=== PATIENT | female | born 1960 | race Caucasian/White ===

== ENCOUNTER 2017-01-28 11:22 | Emergency (ER) | payer MEDICARE ==
[2017-01-28 11:56] LABS: BASO % 0.4 % (0-6); EOS % 1.2 % (0-6); GRAN % 70.2 % (47-80); HEMATOCRIT 42.3 % (35.0-47.0); LYMPH % 22.2 % (16-45); MEAN CORPUSCULAR HEMOGLOBIN 32.1 pg (27-33); MEAN CORPUSCULAR HGB CONC 33.1 g/dl (32-36); PLATELET COUNT 374 K/uL (130-400); RED BLOOD COUNT 4.36 M/uL (3.80-5.40); RED CELL DISTRIBUTION WIDTH 12.2 % (11.5-14.5)
[2017-01-28 12:23] LABS: BLOOD UREA NITROGEN 19 mg/dL (6-20); CREATININE 0.8 mg/dL (0.5-0.9); EST GLOMERULAR FILTRATION RATE > 60 mL/min; GLUCOSE,RANDOM 115 mg/dL (74-109); THYROID STIMULATING HORMONE 2.44 uIU/mL (0.270-4.20)
[2017-01-28 12:26] LABS: TROPONIN I < 0.30 ng/mL (0.00-0.300)
[2017-01-28 12:44] LABS: ERYTHROCYTE SEDIMENTATION RATE 6 mm/hr (0-30)
--- NOTE | 2017-01-28 14:06 | Emergency Department Record ---
History of Present Illness - General Chief Complaint: Palpitations Stated Complaint: HEART RACING Time Seen by Provider: 01/28/17 11:35 Source: Patient Mode of Arrival: Ambulatory Limitations: No limitations - History of Present Illness Initial Comments: pt has been feeling palpitations off and on. pt has been under a lot of stress. pt has had recent lab work by fam doc. today palpitations were worse and her hr was frequently 120.pt is also c/o swelling and tenderness of r middle finger pipj Complaint: Palpitations, Rapid heart beat Onset/Timin -: Days(s) Associated Symptoms: Anxiety - Related Data Allergies Allergy/AdvReac Type Severity Reaction Status Date / Time cefuroxime axetil Allergy Intermediate HIVES Verified 04/28/15 10:22 [From Ceftin] Travel Screening - Travel/Exposure Within Last 30 Days Have you traveled within the last 30 days?: No - Travel/Exposure Within Last Year Have you traveled outside the [place] in the last year?: No - Additonal Travel Details Have you been exposed to anyone with a communicable illness?: No - Travel Symptoms Symptom Screening: None Review of Systems Reviewed: No additional complaints except as noted below Constitutional: Reports: As per HPI. Denies: Chills, Fever, Malaise, Night sweats, Weakness, Weight change Eyes: Reports: As per HPI. Denies: Eye discharge, Eye pain, Photophobia, Vision change ENT: Reports: As per HPI. Denies: Congestion, Dental pain, Ear pain, Epistaxis , Hearing loss, Throat pain Respiratory: Reports: As per HPI. Denies: Cough, Dyspnea, Hemoptysis, Stridor, Wheezes Cardiovascular: Reports: As per HPI. Denies: Arrhythmia, Chest pain, Dyspnea on exertion, Edema, Murmurs, Orthopnea, Palpitations, Paroxysmal nocturnal dyspnea, Rheumatic Fever, Syncope Endocrine: Reports: As per HPI. Denies: Fatigue, Heat or cold intolerance, Polydipsia, Polyuria Gastrointestinal: Reports: As per HPI. Denies: Abdominal pain, Constipation, Diarrhea, Hematemesis, Hematochezia, Melena, Nausea, Vomiting Genitourinary: Reports: As per HPI. Denies: Abnormal menses, Discharge, Dyspareunia, Dysuria, Frequency, Hematuria, Incontinence, Retention, Urgency Musculoskeletal: Reports: As per HPI. Denies: Arthralgia, Back pain, Gout, Joint swelling, Myalgia, Neck pain Skin: Reports: As per HPI. Denies: Bruising, Change in color, Change in hair/ nails, Lesions, Pruritus, Rash Neurological: Reports: As per HPI. Denies: Abnormal gait, Confusion, Headache, Numbness, Paresthesias, Seizure, Tingling, Tremors, Vertigo, Weakness Psychiatric: Reports: As per HPI. Denies: Anxiety, Auditory hallucinations, Depression, Homicidal thoughts, Suicidal thoughts, Visual hallucinations Hematological/Lymphatic: Reports: As per HPI. Denies: Anemia, Blood Clots, Easy bleeding, Easy bruising, Swollen glands Past Medical History - SOCIAL HISTORY Smoking Status: Never smoker Alcohol Use: None Drug Use: None - RESPIRATORY Hx Respiratory Disorders: No - CARDIOVASCULAR Hx Cardio Disorders: No - NEURO Hx Neuro Disorders: No - GI Hx GI Disorders: No - Hx Genitourinary Disorders: No - ENDOCRINE Hx Endocrine Disorders: Yes Hx Thyroid Disease: Yes (Hypo) - MUSCULOSKELETAL Hx Musculoskeletal Disorders: No - PSYCH Hx Psych Problems: Yes Hx Anxiety: Yes Hx Depression: Yes - HEMATOLOGY/ONCOLOGY Hx Hematology/Oncology Disorders: No Family Medical History Any Significant Family History?: No Hx Cancer: Father Hx Heart Disease: Grandparents Hx Liver Disease: Father Hx Stroke: Mother, Grandparents Physical Exam - General General Appearance: Alert, Oriented x3, Cooperative, Mild distress - Head Head exam: Normal inspection - Eye Eye exam: Normal appearance, PERRL, EOMI Pupils: Normal accommodation - ENT ENT exam: Normal exam, Mucous membranes moist, Normal external ear exam, Normal orophraynx Ear exam: Normal external inspection. negative: External canal tenderness Nasal Exam: Normal inspection. negative: Discharge, Sinus tenderness Mouth exam: Normal external inspection, Tongue normal Teeth exam: Normal inspection. negative: Dental caries Throat exam: Normal inspection. negative: Tonsillar erythema, Tonsillar exudate - Neck Neck exam: Normal inspection, Full ROM. negative: Tenderness - Respiratory Respiratory exam: Normal lung sounds bilaterally. negative: Respiratory distress - Cardiovascular Cardiovascular Exam: Regular rate, Normal rhythm, Normal heart sounds - GI/Abdominal GI/Abdominal exam: Soft, Normal bowel sounds. negative: Tenderness - Rectal Rectal exam: Deferred - exam: Deferred - Extremities Extremities exam: Normal inspection, Full ROM, Normal capillary refill, Tenderness Image of Hand: 1 - tender w swelling - Back Back exam: Reports: Normal inspection, Full ROM. Denies: Muscle spasm, Rash noted, Tenderness - Neurological Neurological exam: Alert, CN II-XII intact, Normal gait, Oriented X3 - Psychiatric Psychiatric exam: Anxious, Normal affect, Normal mood - Skin Skin exam: Dry, Intact, Normal color, Warm Course Vital Signs 01/28/17 01/28/17 01/28/17 11:24 12:00 12:30 Temperature 98.5 F Pulse Rate 84 Pulse Rate [ 76 81 Pulse Ox Probe] Respiratory 16 16 16 Rate Blood Pressure 143/83 Blood Pressure 124/88 110/78 [Left Arm] Pulse Ox 100 99 99 Medical Decision Making - Lab Data Result diagrams: 01/28/17 11:37 01/28/17 11:37 Lab Results 01/28/17 01/28/17 01/28/17 Range/Units 11:37 11:37 11:37 WBC 5.0 (4.2-12.2) K/uL RBC 4.36 (3.80-5.40) M/uL Hgb 14.0 (11.6-16.0) gm/dl Hct 42.3 (35.0-47.0) % MCV 97.0 (81-97) fl MCH 32.1 (27-33) pg MCHC 33.1 (32-36) g/dl RDW 12.2 (11.5-14.5) % Plt Count 374 (130-400) K/uL MPV 9.0 (7.4-10.4) fl Gran % 70.2 (47-80) % Lymphocytes % 22.2 (16-45) % Monocytes % 6.0 (0-9) % Eosinophils % 1.2 (0-6) % Basophils % 0.4 (0-6) % ESR 6 (0-30) mm/hr D-Dimer 0.31 (0-0.59) mg/L FEU Sodium 138 (136-145) mmol/L Potassium 3.8 (3.4-4.5) mmol/L Chloride 100 (98-107) mmol/L Carbon Dioxide 26.0 (22-29) mmol/L Anion Gap 12.0 (7-16) BUN 19 (6-20) mg/dL Creatinine 0.8 (0.5-0.9) mg/dL Estimated GFR > 60 mL/min Random Glucose 115 H (74-109) mg/dL Calcium 9.5 (8.6-10.0) mg/dL Troponin I < 0.30 (0.00-0.300) ng/mL TSH 2.44 (0.270-4.20) uIU/mL Disposition Disposition: Discharge Clinical Impression: Anxiety, Palpitations Jammed interphalangeal joint of finger of right hand Qualifiers: Encounter type: initial encounter Qualified Code(s): S69.91XA - Unspecified injury of right wrist, hand and finger(s), initial encounter Disposition: Home, Self-Care Condition: (1) Good Instructions: Heart Palpitations (ED), Jammed Finger (ED), Anxiety (ED) Additional Instructions: follow up with family doctor. return sooner if worse. no caffeine. no cold medications. Forms: Patient Portal Access Quality - Quality Measures Quality Measures: N/A - Blood Pressure Screening Does Patient Have Any of the Following: No Blood Pressure Classification: Pre-Hypertensive BP Reading Systolic Measurement: 143 Diastolic Measurement: 83 Screening for High Blood Pressure: < Pre-Hypertensive BP, F/U Documented > [ G8950] Pre-Hypertensive Follow-up Interventions: Follow-up with rescreen every year.
--- NOTE | 2017-01-29 12:36 | RADIOLOGY REPORT ---
EXAM: RIGHT MIDDLE FINGER HISTORY: PAIN AND SWELLING AT THE RIGHT THIRD PIP JOINT AFTER DOING YARD WORK ONE DAY AGO. TECHNIQUE: Three views of the right middle finger were obtained. Comparison: Previous right wrist series dated 01/28/16. Encounter: Initial. FINDINGS: The bones are intact. There is no visible acute fracture or dislocation. There is mild soft tissue swelling at the level of the PIP joint. There is no soft tissue air or foreign body. IMPRESSION: 1. MILD SOFT TISSUE SWELLING AT THE PIP JOINT. 2. NO FRACTURE OR FOREIGN BODY. JOB NUMBER: [id number] [facility]
== END 2017-01-28 14:30 | disposition home or self-care (01) ==
LOC: ER 11:22
DX: S69.91XA Unspecified injury of right wrist, hand and finger(s), initial encounter (principal); R42 Dizziness and giddiness; R00.2 Palpitations; F41.9 Anxiety disorder, unspecified; W23.0XXA Caught, crushed, jammed, or pinched between moving objects, initial encounter
CPT/HCPCS: 73140; 80048; 84443; 84484; 85025; 85379; 85651; 93005; 93010; 99284

== ENCOUNTER 2017-06-03 12:38 | Emergency (ER) | payer MEDICARE ==
[2017-06-03] MEDS ORDERED: ONDANSETRON HCL IV 4 MG/2 ML VIAL IVP ONE ×2 (13:44→15:37)
[2017-06-03 13:53] LABS: URINE APPEARANCE CLEAR; URINE BILIRUBIN NEGATIVE (NEGATIVE); URINE BLOOD NEGATIVE (NEGATIVE); URINE COLOR YELLOW; URINE GLUCOSE (UA) NEGATIVE (NEGATIVE); URINE KETONE NEGATIVE (NEGATIVE); URINE LEUKOCYTE ESTERASE NEGATIVE (NEGATIVE); URINE NITRITE NEGATIVE (NEGATIVE); URINE PROTEIN NEGATIVE (NEGATIVE); URINE UROBILINOGEN 0.2 E.U./dL (0.20 - 1.00)
[2017-06-03 13:57] LABS: BASO % 0.5 % (0-6); GRAN % 65.6 % (47-80); HEMATOCRIT 41.1 % (35.0-47.0); HEMOGLOBIN 13.5 gm/dl (11.6-16.0); LYMPH % 25.7 % (16-45); MEAN CELL VOLUME 98.1 fl (81-97); MEAN CORPUSCULAR HEMOGLOBIN 32.2 pg (27-33); MEAN CORPUSCULAR HGB CONC 32.8 g/dl (32-36); MONO % 6.2 % (0-9); PLATELET COUNT 289 K/uL (130-400); RED BLOOD COUNT 4.19 M/uL (3.80-5.40); RED CELL DISTRIBUTION WIDTH 12.4 % (11.5-14.5); WHITE BLOOD COUNT W/O DIFF 4.1 K/uL (4.2-12.2)
[2017-06-03 14:09] LABS: BILIRUBIN,TOTAL < 0.20 mg/dL (0.2-1.0); BLOOD UREA NITROGEN 24 mg/dL (6-20); CREATININE 0.7 mg/dL (0.5-0.9); EST GLOMERULAR FILTRATION RATE > 60 mL/min
[2017-06-03 14:10] LABS: TOTAL PROTEIN 6.9 g/dL (6.6-8.7)
[2017-06-03 14:12] LABS: GLUCOSE,RANDOM 107 mg/dL (74-109)
[2017-06-03 14:14] LABS: ALT/SGPT 24 U/L (<33); AST/SGOT 19 U/L (10.0-35.0)
[2017-06-03 14:15] LABS: ALB/GLOB RATIO 1.9 (1.1-1.8); ALBUMIN 4.5 g/dL (4.0-5.0); ALKALINE PHOSPHATASE 88 U/L (35-104); LIPASE 28 U/L (13-60)
--- NOTE | 2017-06-03 15:54 | Emergency Department Record ---
History of Present Illness - General Chief complaint: Nausea, Vomiting, Diarrhea Stated complaint: NAUSEA Time Seen by Provider: 06/03/17 13:18 Source: Patient Mode of Arrival: Ambulatory Limitations: No limitations - History of Present Illness Initial comments: pt has been having nausea for the last week and some occasional discomfort in the epigastrum. she has lost 5 lbs because she doesnt feel like eating. she had 1 day of diarrhea Onset/Timin -: Week(s) Severity: Moderate Severity scale (1-10): 5 Quality: Aching Consistency: Constant Improves with: None - Related Data Previous Rx's Medication Instructions Recorded Ondansetron [Zofran Odt] 4 mg PO Q8H #10 tab.rapdis 06/03/17 Allergies Allergy/AdvReac Type Severity Reaction Status Date / Time cefuroxime axetil Allergy Intermediate HIVES Verified 06/03/17 13:16 [From Ceftin] Travel Screening - Travel/Exposure Within Last 30 Days Have you traveled within the last 30 days?: No - Travel/Exposure Within Last Year Have you traveled outside the [place] in the last year?: No - Additonal Travel Details Have you been exposed to anyone with a communicable illness?: No - Travel Symptoms Symptom Screening: None Review of Systems Reviewed: No additional complaints except as noted below Constitutional: Reports: As per HPI. Denies: Chills, Fever, Malaise, Night sweats, Weakness, Weight change Eyes: Reports: As per HPI. Denies: Eye discharge, Eye pain, Photophobia, Vision change ENT: Reports: As per HPI. Denies: Congestion, Dental pain, Ear pain, Epistaxis , Hearing loss, Throat pain Respiratory: Reports: As per HPI. Denies: Cough, Dyspnea, Hemoptysis, Stridor, Wheezes Cardiovascular: Reports: As per HPI. Denies: Arrhythmia, Chest pain, Dyspnea on exertion, Edema, Murmurs, Orthopnea, Palpitations, Paroxysmal nocturnal dyspnea, Rheumatic Fever, Syncope Endocrine: Reports: As per HPI. Denies: Fatigue, Heat or cold intolerance, Polydipsia, Polyuria Gastrointestinal: Reports: As per HPI, Abdominal pain, Diarrhea, Nausea. Denies : Constipation, Hematemesis, Hematochezia, Melena, Vomiting Genitourinary: Reports: As per HPI. Denies: Abnormal menses, Discharge, Dyspareunia, Dysuria, Frequency, Hematuria, Incontinence, Retention, Urgency Musculoskeletal: Reports: As per HPI. Denies: Arthralgia, Back pain, Gout, Joint swelling, Myalgia, Neck pain Skin: Reports: As per HPI. Denies: Bruising, Change in color, Change in hair/ nails, Lesions, Pruritus, Rash Neurological: Reports: As per HPI. Denies: Abnormal gait, Confusion, Headache, Numbness, Paresthesias, Seizure, Tingling, Tremors, Vertigo, Weakness Psychiatric: Reports: As per HPI. Denies: Anxiety, Auditory hallucinations, Depression, Homicidal thoughts, Suicidal thoughts, Visual hallucinations Hematological/Lymphatic: Reports: As per HPI. Denies: Anemia, Blood Clots, Easy bleeding, Easy bruising, Swollen glands Past Medical History - SOCIAL HISTORY Smoking Status: Never smoker - RESPIRATORY Hx Respiratory Disorders: No - CARDIOVASCULAR Hx Cardio Disorders: No - NEURO Hx Neuro Disorders: No - GI Hx GI Disorders: No - Hx Genitourinary Disorders: No - ENDOCRINE Hx Endocrine Disorders: Yes Hx Thyroid Disease: Yes (Hypo) - MUSCULOSKELETAL Hx Musculoskeletal Disorders: No - PSYCH Hx Psych Problems: Yes Hx Anxiety: Yes Hx Depression: Yes - HEMATOLOGY/ONCOLOGY Hx Hematology/Oncology Disorders: No Family Medical History Any Significant Family History?: Yes Hx Cancer: Father Hx Heart Disease: Grandparents Hx Liver Disease: Father Hx Stroke: Mother, Grandparents Course Vital Signs 06/03/17 13:11 Temperature 98.4 F Pulse Rate 90 Respiratory 16 Rate Blood Pressure 129/84 Pulse Ox 100 Medical Decision Making - Lab Data Result diagrams: 06/03/17 13:42 06/03/17 13:42 Lab Results 06/03/17 06/03/17 06/03/17 Range/Units 13:42 13:42 13:45 WBC 4.1 L (4.2-12.2) K/uL RBC 4.19 (3.80-5.40) M/uL Hgb 13.5 (11.6-16.0) gm/dl Hct 41.1 (35.0-47.0) % MCV 98.1 H (81-97) fl MCH 32.2 (27-33) pg MCHC 32.8 (32-36) g/dl RDW 12.4 (11.5-14.5) % Plt Count 289 (130-400) K/uL MPV 9.0 (7.4-10.4) fl Gran % 65.6 (47-80) % Lymphocytes % 25.7 (16-45) % Monocytes % 6.2 (0-9) % Eosinophils % 2.0 (0-6) % Basophils % 0.5 (0-6) % Sodium 143 (136-145) mmol/L Potassium 4.2 (3.4-4.5) mmol/L Chloride 100 (98-107) mmol/L Carbon Dioxide 28.0 (22-29) mmol/L Anion Gap 15.0 (7-16) BUN 24 H (6-20) mg/dL Creatinine 0.7 (0.5-0.9) mg/dL Estimated GFR > 60 mL/min Random Glucose 107 (74-109) mg/dL Calcium 9.6 (8.6-10.0) mg/dL Total Bilirubin < 0.20 L (0.2-1.0) mg/dL AST 19 (10.0-35.0) U/L ALT 24 (<33) U/L Alkaline Phosphatase 88 (35-104) U/L Total Protein 6.9 (6.6-8.7) g/dL Albumin 4.5 (4.0-5.0) g/dL Globulin 2.4 (1.4-4.8) gm/dL Albumin/Globulin Ratio 1.9 H (1.1-1.8) Lipase 28 (13-60) U/L Urine Color Yellow Urine Appearance Clear Urine pH 6.5 (5.0-8.0) Ur Specific [place] <= 1.005 (1.002-1.030) Urine Protein Negative (NEGATIVE) Urine Glucose (UA) Negative (NEGATIVE) Urine Ketones Negative (NEGATIVE) Urine Blood Negative (NEGATIVE) Urine Nitrite Negative (NEGATIVE) Urine Bilirubin Negative (NEGATIVE) Urine Urobilinogen 0.2 (0.20 - 1.00) E.U./dL Ur Leukocyte Esterase Negative (NEGATIVE) Disposition Disposition: Discharge Clinical Impression: Nausea Abdominal pain Qualifiers: Abdominal location: epigastric Qualified Code(s): R10.13 - Epigastric pain Disposition: Home, Self-Care Condition: (1) Good Instructions: Abdominal Pain (ED), Acute Nausea and Vomiting (ED) Additional Instructions: follow up with family doctor and with GI doctor. return sooner if worse. Prescriptions: Ondansetron [Zofran Odt] 4 mg PO Q8H #10 tab.rapdis Quality - Quality Measures Quality Measures: N/A - Blood Pressure Screening Does Patient Have Any of the Following: No Blood Pressure Classification: Pre-Hypertensive BP Reading Systolic Measurement: 129 Diastolic Measurement: 84 Screening for High Blood Pressure: < Pre-Hypertensive BP, F/U Documented > [ G8950] Pre-Hypertensive Follow-up Interventions: Follow-up with rescreen every year.
== END 2017-06-03 16:13 | disposition home or self-care (01) ==
LOC: ER 12:38
DX: R10.13 Epigastric pain (principal); R11.2 Nausea with vomiting, unspecified; R19.7 Diarrhea, unspecified
CPT/HCPCS: 99284 ×2; 96376; 96374; 83690; 85025; 80053; 81003; J2405

== ENCOUNTER 2017-07-31 17:07 | Emergency (ER) | payer MEDICARE ==
[2017-07-31] MEDS ORDERED: ALPRAZOLAM 0.25 MG TABLET PO ONE (17:38)
[2017-07-31] MEDS ORDERED: 0.9 % SODIUM CHLORIDE 1,000 ML BAG IV ONE (17:38)
[2017-07-31] MEDS ORDERED: LORAZEPAM 2 MG/ML VIAL IV ONE (17:39)
--- NOTE | 2017-07-31 17:44 | Emergency Department Record ---
History of Present Illness - General Chief Complaint: Dizziness Stated Complaint: DIZZNESS/ELEVATED HEART RATE Time Seen by Provider: 07/31/17 17:37 Source: Patient Mode of Arrival: Ambulatory Limitations: No limitations - History of Present Illness Initial Comments: 56 yo female presents with anxiety, heart racing and heart pounding. She states she found out her Aunt was found two days ago in her home. Since then she has not been able to rest, she is anxious, and she is having nightmares. She is finding it difficult to concentrate and control her thoughts. She was trying to take a nap today and felt like her heart was racing. No chest pain. NO shortness of breath. She denies history of heart or lung disease. Non smoker. No other recent changes in her health. She states she does not known why her aunt . Her nightmares are that she (the patient) has undiagnosed cancer. PCP is Dr Elizondo in [place]. Complaint: Lightheadedness Onset/Timin -: Hour(s) Timing: Gradual onset Description: Other History of Same: Yes History of Trauma: No (Loss of family member) Associated Symptoms: Denies other symptoms - [place] Coma Scale Eye Response: (4) Open spontaneously Motor Response: (6) Obeys commands Verbal Response: (5) Oriented [place] Total: 15 - Related Data Previous Rx's Medication Instructions Recorded Ondansetron [Zofran Odt] 4 mg PO Q8H #10 tab.rapdis 06/03/17 Allergies Allergy/AdvReac Type Severity Reaction Status Date / Time cefuroxime axetil Allergy Intermediate HIVES Verified 07/31/17 17:19 [From Ceftin] Travel Screening - Travel/Exposure Within Last 30 Days Have you traveled within the last 30 days?: No - Travel/Exposure Within Last Year Have you traveled outside the [place] in the last year?: No - Additonal Travel Details Have you been exposed to anyone with a communicable illness?: No - Travel Symptoms Symptom Screening: None Review of Systems Constitutional: Denies: Chills, Fever, Malaise, Weakness Eyes: Denies: Eye discharge, Eye pain, Photophobia, Vision change ENT: Denies: Congestion, Throat pain Respiratory: Denies: Cough, Dyspnea, Hemoptysis, Stridor, Wheezes Cardiovascular: Reports: Palpitations. Denies: Chest pain, Dyspnea on exertion , Edema, Syncope Endocrine: Denies: Fatigue Gastrointestinal: Denies: Abdominal pain, Diarrhea, Nausea, Vomiting Genitourinary: Denies: Dysuria, Urgency Musculoskeletal: Denies: Arthralgia, Back pain, Myalgia Skin: Denies: Bruising, Change in color, Rash Neurological: Denies: Confusion, Headache, Numbness, Tingling, Tremors, Vertigo , Weakness Psychiatric: Reports: Anxiety Hematological/Lymphatic: Denies: Easy bleeding, Easy bruising, Swollen glands Past Medical History - SOCIAL HISTORY Smoking Status: Never smoker Alcohol Use: None Drug Use: None - RESPIRATORY Hx Respiratory Disorders: No - CARDIOVASCULAR Hx Cardio Disorders: No - NEURO Hx Neuro Disorders: No - GI Hx GI Disorders: No - Hx Genitourinary Disorders: No - ENDOCRINE Hx Endocrine Disorders: Yes Hx Thyroid Disease: Yes (Hypo) - MUSCULOSKELETAL Hx Musculoskeletal Disorders: No - PSYCH Hx Psych Problems: Yes Hx Anxiety: Yes Hx Depression: Yes - HEMATOLOGY/ONCOLOGY Hx Hematology/Oncology Disorders: No Family Medical History Any Significant Family History?: No Hx Cancer: Father Hx Heart Disease: Grandparents Hx Liver Disease: Father Hx Stroke: Mother, Grandparents Physical Exam - General General Appearance: Alert, Oriented x3, Cooperative, No acute distress Limitations: No limitations - Head Head exam: Normal inspection - Eye Eye exam: Normal appearance, PERRL. negative: Conjunctival injection, Scleral icterus - ENT ENT exam: Normal exam Ear exam: Normal external inspection Nasal Exam: Normal inspection Mouth exam: Normal external inspection - Neck Neck exam: Normal inspection, Full ROM. negative: Tenderness - Respiratory Respiratory exam: Normal lung sounds bilaterally. negative: Respiratory distress - Cardiovascular Cardiovascular Exam: Regular rate, Normal rhythm, Normal heart sounds. negative : Diastolic murmur, Irregular rhythm, Systolic murmur, Tachycardia (HR 96 at time of examination) Peripheral Pulses: 2+: Radial (R), Radial (L) - GI/Abdominal GI/Abdominal exam: Soft. negative: Tenderness - Rectal Rectal exam: Deferred - exam: Deferred - Extremities Extremities exam: Normal inspection. negative: Calf tenderness, Pedal edema, Tenderness - Back Back exam: Reports: Normal inspection, Full ROM. Denies: Muscle spasm, Rash noted, Tenderness - Neurological Neurological exam: Alert, Normal gait, Oriented X3, Reflexes normal - Psychiatric Psychiatric exam: Anxious, Other (Tearful at times, fears she has cancer) - Skin Skin exam: Dry, Intact, Normal color, Warm Course Vital Signs 07/31/17 07/31/17 17:11 17:23 Temperature 98.3 F Pulse Rate 118 H Respiratory 20 Rate Blood Pressure 167/103 Blood Pressure 129/87 [Left Arm] Pulse Ox 100 - Reevaluation(s) Reevaluation #1: EKG 17:17 sinus tachycardia at 103, intervals normal, axis normal, ST normal. NO changes from prior except the rate. Prior was 01/28/17 07/31/17 17:42 07/31/17 18:03 No acute changes on the CBC 07/31/17 18:37 No acute changes on the CMP or troponin with symptoms going on well over 4 hours , atypical, and consistent with her anxiety and grief. The heart rate is much improved at 88bpm The patient is calm 07/31/17 18:44 The patient feels like she can control her grief and anxiety on her own. She has seen therapist in the past and she knows the techniques to help with her anxiety She has a network of friends, family and muslim as well. 07/31/17 18:45 TSH is 1.2 Medical Decision Making - Lab Data Result diagrams: 07/31/17 17:52 07/31/17 17:52 Disposition Disposition: Discharge Clinical Impression: Palpitation, Grief reaction Disposition: Home, Self-Care Condition: (1) Good Instructions: Heart Palpitations (ED) Additional Instructions: Return if you have any concerns or uncontrolled anxiety Call your doctor for close follow up of today's ER visit Forms: Patient Portal Access Time of Disposition: 18:39 Quality - Quality Measures Quality Measures: N/A - Blood Pressure Screening Does Patient Have Any of the Following: No Blood Pressure Classification: Pre-Hypertensive BP Reading Systolic Measurement: 127 Diastolic Measurement: 81 Screening for High Blood Pressure: < Pre-Hypertensive BP, F/U Documented > [ G8950] Pre-Hypertensive Follow-up Interventions: Referral to alternative/primary care provider.
[2017-07-31 17:59] LABS: BASO % 0.6 % (0-6); EOS % 1.3 % (0-6); GRAN % 65.7 % (47-80); HEMATOCRIT 38.2 % (35.0-47.0); HEMOGLOBIN 12.7 gm/dl (11.6-16.0); LYMPH % 24.8 % (16-45); MEAN CELL VOLUME 95.5 fl (81-97); MEAN CORPUSCULAR HEMOGLOBIN 31.8 pg (27-33); MEAN CORPUSCULAR HGB CONC 33.2 g/dl (32-36); MEAN PLATELET VOLUME 8.7 fl (7.4-10.4); MONO % 7.6 % (0-9); PLATELET COUNT 327 K/uL (130-400); RED CELL DISTRIBUTION WIDTH 12.1 % (11.5-14.5); WHITE BLOOD COUNT W/O DIFF 4.6 K/uL (4.2-12.2)
[2017-07-31 18:12] LABS: BILIRUBIN,TOTAL < 0.20 mg/dL (0.2-1.0); BLOOD UREA NITROGEN 19 mg/dL (6-20); CREATININE 0.7 mg/dL (0.5-0.9); EST GLOMERULAR FILTRATION RATE > 60 mL/min; TOTAL PROTEIN 6.5 g/dL (6.6-8.7)
[2017-07-31 18:14] LABS: GLUCOSE,RANDOM 106 mg/dL (74-109)
[2017-07-31 18:17] LABS: ALBUMIN 4.3 g/dL (4.0-5.0); ALKALINE PHOSPHATASE 67 U/L (35-104); ALT/SGPT 18 U/L (<33); AST/SGOT 18 U/L (10.0-35.0)
[2017-07-31 18:29] LABS: THYROID STIMULATING HORMONE 1.21 uIU/mL (0.270-4.20)
== END 2017-07-31 19:00 | disposition home or self-care (01) ==
LOC: ER 17:07
DX: R00.2 Palpitations (principal); R42 Dizziness and giddiness; F43.22 Adjustment disorder with anxiety; E03.9 Hypothyroidism, unspecified
CPT/HCPCS: 99284 ×2; 96374; 96361; 85025; 80053; 84443; 84484; 93005; 93010; J2060; J7030

== ENCOUNTER 2017-09-14 02:05 | Observation (INO) | payer MEDICARE ==
[2017-09-14] MEDS ORDERED: ONDANSETRON HCL IV 4 MG/2 ML VIAL IVP ONE (02:21)
[2017-09-14] MEDS ORDERED: MORPHINE SULFATE 4MG/ML PREFILLED SYRINGE IVP ONE (02:21)
--- NOTE | 2017-09-14 02:26 | Emergency Department Record ---
History of Present Illness - General Chief Complaint: Abdominal Pain Stated Complaint: ABD PAIN Time Seen by Provider: 09/14/17 02:20 Source: Patient Mode of Arrival: Ambulatory Limitations: No limitations - History of Present Illness Initial Comments: 56 yo female presents to ED for evaluation of diffuse abdominal pain and bloating for the past 48 hours associated with loose stools, denies nausea/ vomiting. Patient denies fevers, chills, or recent illness. Patient denies health problems at her baseline or previous abdominal pain symptoms. MD Complaint: Abdominal pain Onset/Timin -: Hour(s) Location: Diffuse Radiation: None Migration to: No migration Severity: Moderate Severity scale (1-10): 8 Quality: Sharp Consistency: Getting worse Improves With: Nothing Worsens With: Nothing Associated Symptoms: Diarrhea - Related Data LMP (females 10-50): other Patient : No Allergies Allergy/AdvReac Type Severity Reaction Status Date / Time cefuroxime axetil Allergy Intermediate HIVES Verified 07/31/17 17:19 [From Ceftin] Travel Screening - Travel/Exposure Within Last 30 Days Have you traveled within the last 30 days?: No - Travel/Exposure Within Last Year Have you traveled outside the [place] in the last year?: No - Additonal Travel Details Have you been exposed to anyone with a communicable illness?: No - Travel Symptoms Symptom Screening: None Review of Systems Constitutional: Denies: Chills, Fever, Malaise, Night sweats Eyes: Denies: Eye discharge, Eye pain ENT: Denies: Congestion, Ear pain Respiratory: Denies: Cough, Dyspnea Cardiovascular: Denies: Chest pain, Dyspnea on exertion Endocrine: Denies: Fatigue, Heat or cold intolerance Gastrointestinal: Reports: Abdominal pain, Diarrhea. Denies: Nausea, Vomiting Genitourinary: Denies: Incontinence, Retention Musculoskeletal: Denies: Arthralgia, Back pain Skin: Denies: Bruising, Change in color Neurological: Denies: Abnormal gait, Confusion, Seizure Psychiatric: Denies: Anxiety Hematological/Lymphatic: Denies: Anemia, Blood Clots Past Medical History - SOCIAL HISTORY Smoking Status: Never smoker Alcohol Use: None Drug Use: None - RESPIRATORY Hx Respiratory Disorders: No - CARDIOVASCULAR Hx Cardio Disorders: No - NEURO Hx Neuro Disorders: No - GI Hx GI Disorders: No - Hx Genitourinary Disorders: No - ENDOCRINE Hx Endocrine Disorders: Yes Hx Thyroid Disease: Yes (Hypo) - MUSCULOSKELETAL Hx Musculoskeletal Disorders: No - PSYCH Hx Psych Problems: Yes Hx Anxiety: Yes Hx Depression: Yes - HEMATOLOGY/ONCOLOGY Hx Hematology/Oncology Disorders: No Family Medical History Any Significant Family History?: No Hx Cancer: Father Hx Heart Disease: Grandparents Hx Liver Disease: Father Hx Stroke: Mother, Grandparents Physical Exam - General General Appearance: Alert, Oriented x3, Cooperative, Moderate distress, Anxious Limitations: No limitations - Head Head exam: Atraumatic, Normocephalic, Normal inspection Head exam detail: negative: Abrasion, Contusion, Graff's sign, General tenderness, Hematoma, Laceration - Eye Eye exam: Normal appearance. negative: Conjunctival injection, Periorbital swelling, Periorbital tenderness, Scleral icterus - ENT Ear exam: negative: Auricular hematoma, Auricular trauma Nasal Exam: negative: Active bleeding, Discharge, Dried blood, Foreign body Mouth exam: negative: Drooling, Laceration, Muffled voice, Tongue elevation - Neck Neck exam: Normal inspection. negative: Meningismus, Tenderness - Respiratory Respiratory exam: Normal lung sounds bilaterally. negative: Rales, Respiratory distress, Rhonchi, Stridor - Cardiovascular Cardiovascular Exam: Regular rate, Normal rhythm, Normal heart sounds - GI/Abdominal GI/Abdominal exam: Soft, Tenderness (Mild, diffuse TTP on examination, no rebound or guarding present.). negative: Rebound, Rigid - Rectal Rectal exam: Deferred - exam: Deferred - Extremities Extremities exam: Normal inspection. negative: Calf tenderness, Pedal edema, Tenderness - Back Back exam: Denies: CVA tenderness (R), CVA tenderness (L) - Neurological Neurological exam: Alert, Normal gait, Oriented X3 - Psychiatric Psychiatric exam: Normal affect, Normal mood - Skin Skin exam: Normal color. negative: Abrasion Type of lesion: negative: abrasion Course Vital Signs 09/14/17 02:08 Temperature 98.5 F Pulse Rate 98 H Respiratory 20 Rate Blood Pressure 138/95 Pulse Ox 100 - Reevaluation(s) Reevaluation #1: 09/14/17 03:27 Labs reviewed and are grossly unremarkable for an acute process. Patient is currently in CT imaging. Reevaluation #2: 09/14/17 03:45 Patient was re-examined, reports improvement in her pain symptoms. Reevaluation #3: 09/14/17 04:25 CT Abdomen and Pelvis: Severe, diffuse small bowel, colonic ileus, and sever gastroparesis. CBD 0.8 cm with associated mild distension of the intra-hepatic ducts and biliary tree. Patient was updated on all results, reports that she is resting more comfortably at this time. Will admit for observation and further evaluation. Medical Decision Making - Lab Data Result diagrams: 09/14/17 02:15 09/14/17 02:15 Disposition Disposition: Admit Clinical Impression: Ileus Abdominal pain Qualifiers: Abdominal location: generalized Qualified Code(s): R10.84 - Generalized abdominal pain Disposition: Still a Patient at [facility] Decision to Admit: Admit from ER Decision to Admit Date: 09/14/17 Decision to Admit Time: 04:32 Condition: (2) Stable Forms: Patient Portal Access Time of Disposition: 04:32 Quality - Quality Measures Quality Measures: N/A - Blood Pressure Screening Does Patient Have Any of the Following: No Blood Pressure Classification: Hypertensive Reading Systolic Measurement: 138 Diastolic Measurement: 95 Screening for High Blood Pressure: < First Hypertensive BP, F/U Documented > [ [id number]] First Hypertensive Follow-up Interventions: Referral to alternative/primary care provider.
[2017-09-14 02:30] LABS: BASO % 0.2 % (0-6); GRAN % 77.9 % (47-80); HEMATOCRIT 43.3 % (35.0-47.0); HEMOGLOBIN 15.1 gm/dl (11.6-16.0); LYMPH % 14.9 % (16-45); MEAN CORPUSCULAR HEMOGLOBIN 34.2 pg (27-33); MEAN CORPUSCULAR HGB CONC 34.9 g/dl (32-36); MEAN PLATELET VOLUME 8.7 fl (7.4-10.4); PLATELET COUNT 325 K/uL (130-400); RED BLOOD COUNT 4.42 M/uL (3.80-5.40); RED CELL DISTRIBUTION WIDTH 12.7 % (11.5-14.5); WHITE BLOOD COUNT W/O DIFF 8.6 K/uL (4.2-12.2)
[2017-09-14] MEDS ORDERED: 0.9 % SODIUM CHLORIDE 1000ML 1,000 ML IV SCH (02:30)
[2017-09-14 02:48] LABS: BLOOD UREA NITROGEN 9 mg/dL (6-20); CREATININE 0.8 mg/dL (0.5-0.9); EST GLOMERULAR FILTRATION RATE > 60 mL/min
[2017-09-14 02:49] LABS: TOTAL PROTEIN 7.3 g/dL (6.6-8.7)
[2017-09-14 02:51] LABS: GLUCOSE,RANDOM 129 mg/dL (74-109)
[2017-09-14 02:53] LABS: ALB/GLOB RATIO 1.9 (1.1-1.8); ALBUMIN 4.8 g/dL (4.0-5.0); ALT/SGPT 19 U/L (<33); AST/SGOT 16 U/L (10.0-35.0)
[2017-09-14] MEDS ORDERED: ACETAMINOPHEN 1,000 MG/100 ML BTL IVPB ONE (02:53)
[2017-09-14 02:54] LABS: ALKALINE PHOSPHATASE 67 U/L (35-104); LIPASE 13 U/L (13-60)
[2017-09-14 03:48] LABS: URINE APPEARANCE CLEAR; URINE BILIRUBIN NEGATIVE (NEGATIVE); URINE BLOOD TRACE-I (NEGATIVE); URINE COLOR YELLOW; URINE GLUCOSE (UA) NEGATIVE (NEGATIVE); URINE KETONE NEGATIVE (NEGATIVE); URINE LEUKOCYTE ESTERASE NEGATIVE (NEGATIVE); URINE NITRITE NEGATIVE (NEGATIVE); URINE PROTEIN NEGATIVE (NEGATIVE); URINE UROBILINOGEN 0.2 E.U./dL (0.20 - 1.00)
[2017-09-14 03:55] LABS: URINE EPITHELIAL CELLS 0 - 2 (FEW); URINE RBC 0 - 2 (NONE SEEN); URINE WBC 0 - 2 (0-2/hpf)
[2017-09-14] MEDS ORDERED: ACETAMINOPHEN 1,000 MG/100 ML BTL IVPB SCH (04:46)
[2017-09-14] MEDS ORDERED: ONDANSETRON HCL IV 4 MG/2 ML VIAL IVP PRN (04:46)
[2017-09-14] MEDS ORDERED: 0.9 % SODIUM CHLORIDE 1000ML 1,000 ML IV PRN (04:46)
[2017-09-14] MEDS: ACETAMINOPHEN 1,000 MG/100 ML BTL IVPB SCH ×2 (09:07→17:03)
[2017-09-14] MEDS: HYOSCYAMINE SULFATE ODT 0.125 MG TAB.SUBL SL PRN ×2 (09:30→15:01)
[2017-09-14] MEDS ORDERED: CLONAZEPAM 1MG TABLET PO PRN (09:44)
[2017-09-14] MEDS ORDERED: [UNRECOGNIZED DRUG - OTHER] PO SCH (10:00)
[2017-09-14] MEDS ORDERED: VENLAFAXINE ER 75 MG CAPSULE PO SCH (10:00)
[2017-09-14] MEDS ORDERED: CLONAZEPAM 1MG TABLET PO SCH (10:00)
[2017-09-14] MEDS ORDERED: SIMETHICONE 80 MG TAB.CHEW PO PRN (10:19)
--- NOTE | 2017-09-14 10:37 | CT SCAN REPORT ---
EXAM: EMERGENCY CT OF THE ABDOMEN AND PELVIS WITH CONTRAST HISTORY: ABDOMINAL PAIN BEGAN THREE DAYS AGO INCREASING OVER THE LAST EIGHT HOURS, PAIN THROUGHOUT THE ABDOMEN, BUT WORSE IN THE UPPER ABDOMEN. TECHNIQUE: Axial CT scan of the abdomen and pelvis was obtained following the intravenous administration of 100 ml of Omnipaque 300 as the IV contrast. No oral contrast utilized at the referring physician's request. A preliminary report was provided by [facility]. Comparison: No prior CT. FINDINGS: No calcified gallstones are seen within the gallbladder. No definite hepatic, splenic, adrenal, pancreatic, or renal mass identified. Intrahepatic biliary tree at about the upper limits of normal in caliber and there is mild prominence of the common duct measuring up to about 8.5 mm in diameter. Borderline prominence of the pancreatic duct as well. No obvious mass in the head of the pancreas or common duct calculus seen. Correlation with serum bilirubin is suggested and depending on the clinical setting, follow- up MRCP may be useful. 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 Evaluation of the bowel is limited without oral contrast, however, there appears to be dilatation of about just about all of the bowel including the stomach, much of the small bowel, and much of the colon including the rectum. This presumably represents a pronounced ileus. The lung bases are clear. No free intraperitoneal air or free intraperitoneal fluid identified. There is bilateral spondylolysis of L5 and degenerative disk disease at the lumbosacral interspace with mild spondylolisthesis of L5 on S1. Mild spurring in the lower thoracic spine. IMPRESSION: 1. DILATATION OF MUCH OF THE BOWEL SUGGESTING A PROMINENT ILEUS. 2. MILD DILATATION OF THE BILIARY TREE DESCRIBED ABOVE. CORRELATION WITH SERUM BILIRUBIN IS SUGGESTED FOR INITIAL FURTHER EVALUATION. 3. BILATERAL SPONDYLOLYSIS OF L5 AND DEGENERATIVE DISK DISEASE AT THE LUMBOSACRAL INTERSPACE WITH SOME SPONDYLOLISTHESIS OF L5 ON S1. JOB NUMBER: [id number] [facility]
--- NOTE | 2017-09-14 10:37 | History & Physical ---
History of Present Illness - Date of Service Date of Service for History & Physical: 09/14/17 - History of Present Illness Admitting Diagnosis: Abdominal pain. Ileus History of Present Illness: 56 yo female presents for abd pain/bloating and diarrhea x 4 days. PMG Anxiety and depression, hypothyroid. Pt reports that she at out with family sunday night and then began experiencing abd pain, bloating and diarrhea, denies N/V. Other at at the same location but no others are sick. Denies any new food items or potential undercook meat. Diarrhea once daily that has become uncontrolled but denies blood. No hx of ABX use or sick contacts. pt brought herself to ER. ER CT abd/pelvis shows colonic ileus and sever gastroparesis. CBD dilated at 0.8cm (suggest liver studies- RUQ US ordered) temp98.5F, HR 98, RR 20, BP 138/95, 100% RA pain 9/10 WBC 8.6, Hgb 15.1, Hct 43.3, plt 325 Na 141, K 4.4, Cl 100, CO2 26, BUN 9, creatinine 0.8, GFR >60, glucose 129, bili 0.40, AST/ALT 16/19, Alk Phos 67, lipase 13 Given 1L NS bolus, Ofirmev 1g IVPB, zofran 4mg, and morphine 4mg IVP. 09/14/17 Pt in no distress, reports pain 3/10 with NPO status, IVF @ 125, Ofirmev 1G q6h , levsin ODT 0.25mg q4h PRN. Pt reports she did not like how the morphine made her feel and does not want any narcotics if possible. RUQ US ordered to f/u dilated CBD, LFTs normal. pt has not brought her Street pork thyroid and is NF. If pt remains, will have fam/friend bring home medication in. TSH and Mag ordered from previous labs. Simethicone 80mg TID for gas/bloating ordered PRN. Stool cultures ordered and pending r/t 4 days diarrhea. PCP Delphine Suárez Travel Screening - Travel/Exposure Within Last 30 Days Have you traveled within the last 30 days?: No - Travel/Exposure Within Last Year Have you traveled outside the [place] in the last year?: No - Additonal Travel Details Have you been exposed to anyone with a communicable illness?: No - Travel Symptoms Symptom Screening: Stomach Pain Review of Systems Constitutional: Denies: Chills, Fever, Malaise, Night sweats Eyes: Denies: Eye discharge, Eye pain ENT: Denies: Congestion, Ear pain Respiratory: Denies: Cough, Dyspnea Cardiovascular: Denies: Chest pain, Dyspnea on exertion Endocrine: Denies: Fatigue, Heat or cold intolerance Gastrointestinal: Reports: Abdominal pain, Diarrhea. Denies: Nausea, Vomiting Genitourinary: Denies: Incontinence, Retention Musculoskeletal: Denies: Arthralgia, Back pain Skin: Denies: Bruising, Change in color Neurological: Denies: Abnormal gait, Confusion, Seizure Psychiatric: Denies: Anxiety Hematological/Lymphatic: Denies: Anemia, Blood Clots Past Medical History - SOCIAL HISTORY Smoking Status: Never smoker Alcohol Use: None Drug Use: None - RESPIRATORY Hx Respiratory Disorders: No - CARDIOVASCULAR Hx Cardio Disorders: No - NEURO Hx Neuro Disorders: No - GI Hx GI Disorders: No - Hx Genitourinary Disorders: No - ENDOCRINE Hx Endocrine Disorders: Yes Hx Thyroid Disease: Yes (Hypothyroid) - MUSCULOSKELETAL Hx Musculoskeletal Disorders: No - PSYCH Hx Psych Problems: Yes Hx Anxiety: Yes Hx Depression: Yes - HEMATOLOGY/ONCOLOGY Hx Hematology/Oncology Disorders: No Family Medical History Any Significant Family History?: No Hx Cancer: Father Hx Heart Disease: Grandparents Hx Liver Disease: Father Hx Stroke: Mother, Grandparents H&P Meds/Allergies - Allergies Allergies: Allergies Allergy/AdvReac Type Severity Reaction Status Date / Time cefuroxime axetil Allergy Intermediate HIVES Verified 07/31/17 17:19 [From Ceftin] - Active Medications Active Medications: Current Medications Clonazepam (Klonopin) 2 mg PO BID PRN PRN Reason: ANXIETY Fluoxetine HCl (Prozac) 20 mg PO DAILY [facility] Fluoxetine HCl (Prozac) 10 mg PO QPM [facility] Hyoscyamine (Levsin Odt) 0.25 mg SL Q4H PRN PRN Reason: Abdominal Pain Last Admin: 09/14/17 09:30 Dose: 0.25 mg Sodium Chloride () 1,000 mls @ 125 mls/hr IV .Q8H PRN PRN Reason: LARGE VOLUME IV Last Admin: 09/14/17 05:18 Dose: 125 mls/hr Acetaminophen (Ofirmev) 1,000 mg in 100 mls @ 400 mls/hr IVPB Q6H [facility] Last Infusion: 09/14/17 10:12 Dose: Infused Non-Formulary Medication (Estrogen Combination) 1 tab PO DAILY [facility] Non-Formulary Medication (Thyroid,Pork [Street [facility]]) [facility] Ondansetron HCl (Zofran) 4 mg IVP Q4H PRN PRN Reason: NAUSEA Venlafaxine HCl (Effexor Xr) 300 mg PO DAILY [facility] Physical Exam - Vital Signs Vital Signs: Vital Signs - Last 24 Hrs Temp Pulse Pulse Resp BP BP Pulse Ox 09/14/17 08:00 98.1 F 76 18 114/67 100 09/14/17 04:45 90 16 123/69 99 09/14/17 04:43 87 20 107/66 100 09/14/17 03:46 82 20 118/68 100 09/14/17 02:49 94 H 20 124/82 99 09/14/17 02:08 98.5 F 98 H 20 138/95 100 - General General Appearance: Alert, Oriented x3, Cooperative, No acute distress Limitations: No limitations - Head Head exam: Atraumatic, Normocephalic, Normal inspection Head exam detail: negative: Abrasion, Contusion, Graff's sign, General tenderness, Hematoma, Laceration - Eye Eye exam: Normal appearance. negative: Conjunctival injection, Periorbital swelling, Periorbital tenderness, Scleral icterus - ENT ENT exam: Normal external ear exam Ear exam: Normal external inspection. negative: Auricular hematoma, Auricular trauma Nasal Exam: negative: Active bleeding, Discharge, Dried blood, Foreign body Mouth exam: negative: Drooling, Laceration, Muffled voice, Tongue elevation - Neck Neck exam: Normal inspection. negative: Meningismus, Tenderness - Respiratory Respiratory exam: Normal lung sounds bilaterally. negative: Rales, Respiratory distress, Rhonchi, Stridor - Cardiovascular Cardiovascular Exam: Regular rate, Normal rhythm, Normal heart sounds Peripheral Pulses: 2+: Radial (R), Radial (L), Dorsalis Pedis (R), Dorsalis Pedis (L) - GI/Abdominal GI/Abdominal exam: Soft, Hyperactive bowel sounds, Tenderness (Mild, diffuse TTP on examination, no rebound or guarding present.). negative: Rebound, Rigid - Rectal Rectal exam: Deferred - exam: Deferred - Extremities Extremities exam: Normal inspection. negative: Calf tenderness, Pedal edema, Tenderness - Back Back exam: Denies: CVA tenderness (R), CVA tenderness (L) - Neurological Neurological exam: Alert, Normal gait, Oriented X3 - Psychiatric Psychiatric exam: Normal affect, Normal mood - Skin Skin exam: Normal color. negative: Abrasion Type of lesion: negative: abrasion Results - Labs Result Diagrams: 09/14/17 02:15 09/14/17 02:15 Labs Last 24 Hours: Laboratory Results - last 24 hr 09/14/17 09/14/17 09/14/17 02:15 02:15 03:40 WBC 8.6 RBC 4.42 Hgb 15.1 Hct 43.3 MCV 98.0 H MCH 34.2 H MCHC 34.9 RDW 12.7 Plt Count 325 MPV 8.7 Gran % 77.9 Lymphocytes % 14.9 L Monocytes % 5.0 Eosinophils % 2.0 Basophils % 0.2 Sodium 141 Potassium 4.4 Chloride 100 Carbon Dioxide 26.0 Anion Gap 15.0 BUN 9 Creatinine 0.8 Estimated GFR > 60 Random Glucose 129 H Calcium 9.4 Total Bilirubin 0.40 AST 16 ALT 19 Alkaline Phosphatase 67 Total Protein 7.3 Albumin 4.8 Globulin 2.5 Albumin/Globulin Ratio 1.9 H Lipase 13 Urine Color Yellow Urine Appearance Clear Urine pH 6.0 Ur Specific [place] <= 1.005 Urine Protein Negative Urine Glucose (UA) Negative Urine Ketones Negative Urine Blood Trace-i Urine Nitrite Negative Urine Bilirubin Negative Urine Urobilinogen 0.2 Ur Leukocyte Esterase Negative Urine RBC 0 - 2 Urine WBC 0 - 2 Ur Epithelial Cells 0 - 2 - Imaging and Cardiology CT scan - abdomen Status: Report reviewed VTE H&P Assessment - Risk for VTE Risk for VTE: No Risk Level: Low Risk Assessment Date: 09/14/17 Risk Assessment Time: 10:39 VTE Orders Placed or Will Be Placed: No VTE Reason for No Prophylaxis: Not Indicated Plan - Detailed Diagnosis and Plan (1) Abdominal pain Current Visit: Yes Status: Acute Qualifiers: Abdominal location: generalized Qualified Code(s): R10.84 - Generalized abdominal pain Base Code: R10.9 - UNSPECIFIED ABDOMINAL PAIN Comment: 09/14/17 -diffuse abd pain, TTP, hyperactive BS x4, no organomegaly, controlled with Ofirmev 1gm q6h, levsin 0.25mg q4h PRN -IVF NS @ 125 -NPO except for meds -US ordered RUQ for CBD dialation, LFTs normal - CT suggests possible MRI MRCP after liver study, US correlates to dilation and gallbladder wall thickening but no stones noted. LFTs normal- f/u outpt -advancing to [facility] after lunch (tx caffeine withdrawal [place] with IV benadryl and hot tea) (2) Ileus Current Visit: Yes Status: Acute Base Code: K56.7 - ILEUS, UNSPECIFIED Comment: 09/14/17 - colonic ileus -no N/V, diarrhea x 4 days -no hx of same, denies HX of SBO -NPO for GI rest and re-evaluation -pain mgt (3) Full code status Current Visit: Yes Status: Acute Base Code: Z78.9 - OTHER SPECIFIED HEALTH STATUS Comment: 09/14/17 full code
[2017-09-14 10:52] LABS: THYROID STIMULATING HORMONE 1.51 uIU/mL (0.270-4.20)
[2017-09-14] MEDS ORDERED: DIPHENHYDRAMINE HCL 50 MG/ML VIAL IVP ONE (13:25)
--- NOTE | 2017-09-14 15:32 | Discharge Summary ---
Providers Discharge Summary Date: 09/14/17 Date of admission: 09/14/17 04:42 Expected Date of Discharge: 09/14/17 Attending physician: INGRIS GALVAN Primary care physician: Delphine Suárez Consults: GI Physical Exam - Vital Signs Vital Signs: Vital Signs - Last 24 Hrs Temp Pulse Pulse Resp BP BP Pulse Ox 09/14/17 12:00 97.8 F 80 16 120/81 97 09/14/17 09:00 94 H 20 09/14/17 08:00 98.1 F 76 18 114/67 100 09/14/17 04:45 90 16 123/69 99 09/14/17 04:43 87 20 107/66 100 09/14/17 03:46 82 20 118/68 100 09/14/17 02:49 94 H 20 124/82 99 09/14/17 02:08 98.5 F 98 H 20 138/95 100 - General General Appearance: Alert, Oriented x3, Cooperative, No acute distress Limitations: No limitations - Head Head exam: Atraumatic, Normocephalic, Normal inspection Head exam detail: negative: Abrasion, Contusion, Graff's sign, General tenderness, Hematoma, Laceration - Eye Eye exam: Normal appearance. negative: Conjunctival injection, Periorbital swelling, Periorbital tenderness, Scleral icterus - ENT ENT exam: Normal external ear exam Ear exam: Normal external inspection. negative: Auricular hematoma, Auricular trauma Nasal Exam: negative: Active bleeding, Discharge, Dried blood, Foreign body Mouth exam: negative: Drooling, Laceration, Muffled voice, Tongue elevation - Neck Neck exam: Normal inspection. negative: Meningismus, Tenderness - Respiratory Respiratory exam: Normal lung sounds bilaterally. negative: Rales, Respiratory distress, Rhonchi, Stridor - Cardiovascular Cardiovascular Exam: Regular rate, Normal rhythm, Normal heart sounds Peripheral Pulses: 2+: Radial (R), Radial (L), Dorsalis Pedis (R), Dorsalis Pedis (L) - GI/Abdominal GI/Abdominal exam: Soft, Hyperactive bowel sounds, Tenderness (Mild, diffuse TTP on examination, no rebound or guarding present.). negative: Rebound, Rigid - Rectal Rectal exam: Deferred - exam: Deferred - Extremities Extremities exam: Normal inspection. negative: Calf tenderness, Pedal edema, Tenderness - Back Back exam: Denies: CVA tenderness (R), CVA tenderness (L) - Neurological Neurological exam: Alert, Normal gait, Oriented X3 - Psychiatric Psychiatric exam: Normal affect, Normal mood - Skin Skin exam: Normal color. negative: Abrasion Type of lesion: negative: abrasion Hospitalization - Hospitalization Admission Diagnosis: Abdominal pain. Ileus - Problem List/Discharge Diagnosis (1) Abdominal pain Current Visit: Yes Status: Acute Discharge Diagnosis: Abdominal location: generalized Qualified Code(s): R10.84 - Generalized abdominal pain Base Code: R10.9 - UNSPECIFIED ABDOMINAL PAIN Comment: 09/14/17 -diffuse abd pain, TTP, hyperactive BS x4, no organomegaly, controlled with Ofirmev 1gm q6h, levsin 0.25mg q4h PRN -IVF NS @ 125 -NPO except for meds -US ordered RUQ for CBD dialation, LFTs normal - CT suggests possible MRI MRCP after liver study, US correlates to dilation and gallbladder wall thickening but no stones noted. LFTs normal- f/u outpt -advancing to CLD after lunch (tx caffeine withdrawal FENTON with IV benadryl and hot tea) UPDATE -pt tolerating CLD -CLD through the weekend -FENTON resolved (2) Ileus Current Visit: Yes Status: Acute Base Code: K56.7 - ILEUS, UNSPECIFIED Comment: 09/14/17 - colonic ileus -no N/V, diarrhea x 4 days -no hx of same, denies HX of SBO -NPO for GI rest and re-evaluation -pain mgt UPDATE -CLD until sunday -GI consult outpt -f/u PCP (3) Full code status Current Visit: Yes Status: Acute Base Code: Z78.9 - OTHER SPECIFIED HEALTH STATUS Comment: 09/14/17 full code - Hospitalization Course Disposition: Home, Self-Care Hospital Course: 56 yo female presents for abd pain/bloating and diarrhea x 4 days. PMG Anxiety and depression, hypothyroid. Pt reports that she at out with family sunday night and then began experiencing abd pain, bloating and diarrhea, denies N/V. Other at at the same location but no others are sick. Denies any new food items or potential undercook meat. Diarrhea once daily that has become uncontrolled but denies blood. No hx of ABX use or sick contacts. pt brought herself to ER. ER CT abd/pelvis shows colonic ileus and sever gastroparesis. CBD dilated at 0.8cm (suggest liver studies- RUQ US ordered) temp98.5F, HR 98, RR 20, BP 138/95, 100% RA pain 9/10 WBC 8.6, Hgb 15.1, Hct 43.3, plt 325 Na 141, K 4.4, Cl 100, CO2 26, BUN 9, creatinine 0.8, GFR >60, glucose 129, bili 0.40, AST/ALT 16/19, Alk Phos 67, lipase 13 Given 1L NS bolus, Ofirmev 1g IVPB, zofran 4mg, and morphine 4mg IVP. 09/14/17 Pt in no distress, reports pain 3/10 with NPO status, IVF @ 125, Ofirmev 1G q6h , levsin ODT 0.25mg q4h PRN. Pt reports she did not like how the morphine made her feel and does not want any narcotics if possible. RUQ US ordered to f/u dilated CBD, LFTs normal. pt has not brought her [place] pork thyroid and is NF. If pt remains, will have fam/friend bring home medication in. TSH and Mag ordered from previous labs. Simethicone 80mg TID for gas/bloating ordered PRN. Stool cultures ordered and pending r/t 4 days diarrhea. PCP Delphine Suárez Procedures: Imaging and X-Rays 09/14/17 02:21 ABDOMEN/PELVIS W CONTRAST [CT] Stat 09/14/17 10:17 ABDOMEN, LIMITED [US] Stat Abnormal Labs: Abnormal Lab Results 09/14/17 09/14/17 Range/Units 02:15 02:15 MCV 98.0 H (81-97) fl MCH 34.2 H (27-33) pg Lymphocytes % 14.9 L (16-45) % Random Glucose 129 H (74-109) mg/dL Albumin/Globulin Ratio 1.9 H (1.1-1.8) Condition at Discharge: (2) Stable Discharge Diagnosis: Ileus Discharge Medications - Discharge Medications Prescriptions: Hyoscyamine Sulfate [Levsin Odt] 0.25 mg SL Q6H PRN 5 Days #24 tab.subl MDD 1.5mg per day PRN Reason: Abdominal Pain Simethicone [Mylicon] 80 mg PO TID PRN #1 box PRN Reason: Gas/bloating Home Medications: Ambulatory Orders Clonazepam [Klonopin] 2 mg PO DAILY 04/28/15 [Last Taken 07/31/17] Estrogen Combination 1 tab PO DAILY 04/28/15 [Last Taken 07/31/17] Progesterone,Micronized [Progesterone] 1 tab PO QHS 04/28/15 [Last Taken ] Thyroid,Pork [[place] Thyroid] 30 mg PO DAILY 04/28/15 [Last Taken 07/31/17] Venlafaxine HCl [Effexor Xr] 300 mg PO DAILY 04/28/15 [Last Taken 07/31/17] Clonazepam [Klonopin] 2 mg PO BID PRN tablet 09/14/17 [Last Taken Unknown] Fluoxetine HCl [Prozac] 10 mg PO QPM capsule 09/14/17 [Last Taken Unknown] Fluoxetine HCl [Prozac] 20 mg PO DAILY capsule 09/14/17 [Last Taken Unknown] Hyoscyamine Sulfate [Levsin Odt] 0.25 mg SL Q6H PRN 5 Days #24 tab.subl MDD 1.5mg per day 09/14/17 [Last Taken Unknown] Simethicone [Mylicon] 80 mg PO TID PRN #1 box 09/14/17 [Last Taken Unknown] Discharge Plan - Discharge Instructions Activity at Discharge: Increase Activity as Tolerated Diet at Discharge: Other (Clear liquid diet for 2 more days, then advance) Quality Measures - Quality Measures Quality Measures: Documentation of Current Medications in Medical Record, Screening for High Blood Pressure and F/U Documented - Current Medications Quality Measure: Measure #130: Documentation of Current Medications Documentation of Current Medications: <Current Medications Documented/Reviewed> [G3548] - Blood Pressure Screening Quality Measure: Screening for High Blood Pressure and Follow-Up Documented Does Patient Have Any of the Following: No Blood Pressure Classification: Hypertensive Reading Systolic Measurement: 138 Diastolic Measurement: 95 Screening for High Blood Pressure: < Pre-Hypertensive BP, F/U Documented > [ G8950] Pre-Hypertensive Follow-up Interventions: Referral to alternative/primary care provider. - Elder Abuse Suspicion Index EASI Reference Information: Poornima MUKHERJEE, Malathi C, Larry D, Carloz Tim.Development and validation of a tool to assist physicians identification of elder abuse: The Elder Abuse Suspicion Index (EASI ). Journal of Elder Abuse and Neglect, 2008; 20 (3): 276-300.
[2017-09-14] MEDS ORDERED: FLUOXETINE HCL 10 MG CAPSULE PO SCH (17:00)
[2017-09-14] MEDS ORDERED: PROGESTERONE MICRONIZED PO SCH (22:00)
[2017-09-15] MEDS ORDERED: THYROID PORK 30 MG PO SCH (07:00)
[2017-09-15] MEDS ORDERED: FLUOXETINE HCL 20 MG CAPSULE PO SCH (10:00)
--- NOTE | 2017-09-15 22:15 | ULTRASOUND REPORT ---
EXAM: ULTRASOUND ABDOMEN, COMPLETE HISTORY: ABDOMINAL PAIN FOR THREE DAYS. DILATED COMMON DUCT ON ABDOMEN CT EARLIER TODAY. ULTRASOUND REQUESTED FOR FURTHER EVALUATION OF THE GALLBLADDER AND BILIARY TREE. TECHNIQUE: Limited emergency gallbladder ultrasound. COMPARISON: No prior abdomen ultrasound Comparison is made with the abdomen CT from earlier this morning on 09/14/17. FINDINGS: Gallbladder wall diffusely appears mildly thickened. This is nonspecific and can be seen in numerous conditions including acute or chronic cholecystitis, hepatitis, hypoproteinemia, and ascites. No ascites is evident. No actual gallstones were seen within the gallbladder. The common duct is mildly dilated measuring 8 mm in diameter corresponding to that seen on the CT today. No obvious intrahepatic biliary dilatation seen. Correlation with serum bilirubin suggested and follow-up MRCP may be useful for further evaluation. IMPRESSION: 1. MILD DIFFUSE PROMINENCE OF THE GALLBLADDER WALL. HOWEVER, NO GALLSTONES IDENTIFIED. 2. MILD DILATATION OF THE COMMON DUCT. JOB NUMBER: [id number] MTDD
== END 2017-09-14 18:17 | disposition home or self-care (01) ==
LOC: ER 02:05 → MEDSURG 04:42
PROVIDERS: ADMIT Internal Medicine; ATTEND Internal Medicine
DX: K56.7 Ileus, unspecified (principal); R19.7 Diarrhea, unspecified; R14.0 Abdominal distension (gaseous); E03.9 Hypothyroidism, unspecified; F41.9 Anxiety disorder, unspecified; F32.9 Major depressive disorder, single episode, unspecified
CPT/HCPCS: 74177; 76705; 80053; 81001; 83690; 83735; 84443; 85025; 96374; 96375; 99220; 99285; J1200; J2274; J2405; J7030

== ENCOUNTER 2018-02-18 18:37 | Emergency (ER) | payer MEDICARE ==
--- NOTE | 2018-02-18 19:06 | Emergency Department Record ---
History of Present Illness - General Chief Complaint: Chest Pain Stated Complaint: LT ARM PAIN Time Seen by Provider: 02/18/18 18:48 Source: Patient Mode of Arrival: Ambulatory Limitations: No limitations - History of Present Illness Initial Comments: 57 yo female presents to ED for evaluation of left arm numbness after picking her grand-daughter from school this afternoon. Patient also reported blurred vision while attempting to read a page at home, has now resolved. Patient denies any health problems at her baseline other than hypothyroidism, but does repot recent stopping Effexor 1 week ago after being on the medication for approximately 10 years. Patient denies previous heart or lung problems. MD Complaint: Other Onset/Timin -: Minutes(s) Onset: During rest Severity: Moderate Quality: Aching Consistency: Intermittent Improves With: Nothing Worsens With: Nothing Treatments Prior to Arrival: None - Related Data Previous Rx's Medication Instructions Recorded Fluoxetine HCl [Prozac] 10 mg PO QPM capsule 09/14/17 Fluoxetine HCl [Prozac] 20 mg PO DAILY capsule 09/14/17 Allergies Allergy/AdvReac Type Severity Reaction Status Date / Time cefuroxime axetil Allergy Intermediate HIVES Verified 02/18/18 18:54 [From Ceftin] Travel Screening - Travel/Exposure Within Last 30 Days Have you traveled within the last 30 days?: No - Travel/Exposure Within Last Year Have you traveled outside the [place] in the last year?: No - Additonal Travel Details Have you been exposed to anyone with a communicable illness?: No - Travel Symptoms Symptom Screening: None Review of Systems Constitutional: Denies: Chills, Fever, Malaise, Night sweats Eyes: Reports: Vision change (now resolved). Denies: Eye discharge, Eye pain ENT: Denies: Congestion Respiratory: Denies: Cough, Dyspnea Cardiovascular: Denies: Chest pain, Dyspnea on exertion Endocrine: Denies: Fatigue, Heat or cold intolerance Gastrointestinal: Denies: Abdominal pain, Nausea, Vomiting Genitourinary: Denies: Incontinence, Retention Musculoskeletal: Denies: Arthralgia, Back pain Skin: Denies: Bruising, Change in color Neurological: Reports: Numbness (LUE). Denies: Abnormal gait, Confusion, Headache Psychiatric: Denies: Anxiety Hematological/Lymphatic: Denies: Anemia, Blood Clots Past Medical History - SOCIAL HISTORY Smoking Status: Never smoker Alcohol Use: None Drug Use: None - RESPIRATORY Hx Respiratory Disorders: Yes Hx Pneumonia: Yes - CARDIOVASCULAR Hx Cardio Disorders: No - NEURO Hx Neuro Disorders: No - GI Hx GI Disorders: No - Hx Genitourinary Disorders: No - ENDOCRINE Hx Endocrine Disorders: Yes Hx Thyroid Disease: Yes (Hypo) - MUSCULOSKELETAL Hx Musculoskeletal Disorders: No - PSYCH Hx Psych Problems: Yes Hx Anxiety: Yes Hx Depression: Yes - HEMATOLOGY/ONCOLOGY Hx Hematology/Oncology Disorders: No Family Medical History Any Significant Family History?: Yes Hx Cancer: Father Hx Heart Disease: Grandparents Hx Liver Disease: Father Hx Stroke: Mother, Grandparents Physical Exam - General General Appearance: Alert, Oriented x3, Cooperative, Anxious Limitations: No limitations - Head Head exam: Atraumatic, Normocephalic, Normal inspection Head exam detail: negative: Abrasion, Contusion, General tenderness, Hematoma, Laceration - Eye Eye exam: Normal appearance. negative: Conjunctival injection, Periorbital swelling, Periorbital tenderness, Scleral icterus - ENT Ear exam: negative: Auricular hematoma, Auricular trauma Nasal Exam: negative: Active bleeding, Discharge, Dried blood, Foreign body Mouth exam: negative: Drooling, Laceration, Muffled voice, Tongue elevation - Neck Neck exam: Normal inspection. negative: Meningismus, Tenderness - Respiratory Respiratory exam: Normal lung sounds bilaterally. negative: Rales, Respiratory distress, Rhonchi, Stridor - Cardiovascular Cardiovascular Exam: Regular rate, Normal rhythm, Normal heart sounds - GI/Abdominal GI/Abdominal exam: Soft. negative: Rebound, Rigid, Tenderness - Rectal Rectal exam: Deferred - exam: Deferred - Extremities Extremities exam: Normal inspection. negative: Calf tenderness, Pedal edema, Tenderness - Neurological Neurological exam: Alert, CN II-XII intact, Normal gait, Oriented X3. negative : Motor sensory deficit - Psychiatric Psychiatric exam: Normal affect, Normal mood - Skin Skin exam: Normal color. negative: Abrasion Type of lesion: negative: abrasion Course Vital Signs 02/18/18 18:50 Temperature 97.9 F Pulse Rate 89 Respiratory 20 Rate Blood Pressure 135/82 Pulse Ox 100 - Reevaluation(s) Reevaluation #1: 02/18/18 19:01 EKG: NSR 88 Normal axis, normal intervals No acute ST-T wave changes are present Patient was seen and examined, NIH stroke scale is 0 on examination. Will initiate cardiac/neurologic evaluation and reassess. Reevaluation #2: 02/18/18 20:03 Laboratory studies were reviewed and are grossly unremarkable for an acute process. Reevaluation #3: 02/18/18 20:16 Patient was updated on all results, reports that she is feeling much better. CT Brain: No acute process Patient has no clinical evidence for acute CVA, discussed performing 3-hour Troponin to exclude atypical ACS. Patient agrees with the plan of care as discussed. Reevaluation #4: 02/18/18 21:50 Repeat Troponin was drawn, patient is resting comfortably, reports that she is asymptomatic at this time. Reevaluation #5: 02/18/18 22:07 Repeat Troponin is negative for myocardial damage. Patient appears stable for discharge at this time with instructions for follow- up in 3-5 days with her PCP for further evaluation. Medical Decision Making - Lab Data Result diagrams: 02/18/18 18:50 02/18/18 18:50 Disposition Disposition: Discharge Clinical Impression: Atypical chest pain Disposition: Home, Self-Care Condition: (2) Stable Instructions: Chest Pain (ED) Additional Instructions: Return to ED if your symptoms worsen or if you have any concerns. Follow-up with your family doctor in 3-5 days as directed. Forms: Patient Portal Access Time of Disposition: 22:08 Quality - Quality Measures Quality Measures: N/A - Blood Pressure Screening Does Patient Have Any of the Following: No Blood Pressure Classification: Pre-Hypertensive BP Reading Systolic Measurement: 135 Diastolic Measurement: 82 Screening for High Blood Pressure: < Pre-Hypertensive BP, F/U Documented > [ G8950] Pre-Hypertensive Follow-up Interventions: Referral to alternative/primary care provider.
[2018-02-18 19:07] LABS: BASO % 0.8 % (0-6); EOS % 3.9 % (0-6); GRAN % 52.7 % (47-80); HEMATOCRIT 40.6 % (35.0-47.0); HEMOGLOBIN 13.1 gm/dl (11.6-16.0); LYMPH % 34.9 % (16-45); MEAN CELL VOLUME 98.1 fl (81-97); MEAN CORPUSCULAR HEMOGLOBIN 31.6 pg (27-33); MEAN CORPUSCULAR HGB CONC 32.3 g/dl (32-36); MEAN PLATELET VOLUME 8.7 fl (7.4-10.4); MONO % 7.7 % (0-9); PLATELET COUNT 381 K/uL (130-400); RED BLOOD COUNT 4.14 M/uL (3.80-5.40); RED CELL DISTRIBUTION WIDTH 13.4 % (11.5-14.5)
[2018-02-18] MEDS: ASPIRIN 81 MG CHEWABLE TABLET PO ONE (19:07)
[2018-02-18 19:19] LABS: BILIRUBIN,TOTAL < 0.20 mg/dL (0.2-1.0); BLOOD UREA NITROGEN 10 mg/dL (6-20); CREATININE 0.8 mg/dL (0.5-0.9); EST GLOMERULAR FILTRATION RATE > 60 mL/min
[2018-02-18 19:20] LABS: TOTAL PROTEIN 7.1 g/dL (6.6-8.7)
[2018-02-18 19:22] LABS: GLUCOSE,RANDOM 102 mg/dL (74-109)
[2018-02-18 19:24] LABS: ALT/SGPT 79 U/L (<33); AST/SGOT 31 U/L (10.0-35.0)
[2018-02-18 19:25] LABS: ALB/GLOB RATIO 2.1 (1.1-1.8); ALBUMIN 4.8 g/dL (4.0-5.0); ALKALINE PHOSPHATASE 75 U/L (35-104)
[2018-02-18 19:36] LABS: THYROID STIMULATING HORMONE 2.84 uIU/mL (0.270-4.20)
--- NOTE | 2018-02-20 07:55 | CT SCAN REPORT ---
EXAM: CT OF THE BRAIN WITHOUT CONTRAST HISTORY: CEREBROVASCULAR ACCIDENT. TECHNIQUE: Sequential axial images were obtained from the foramen magnum to the vertex without contrast administration. FINDINGS: The brain volume is normal. No large territorial infarct, hemorrhage , mass effect, or midline shift. The orbits, paranasal sinuses, and mastoid air cells are normal. IMPRESSION: NO ACUTE INTRACRANIAL ABNORMALITY IS APPRECIATED. JOB NUMBER: [id number] MTDD
== END 2018-02-18 22:21 | disposition home or self-care (01) ==
LOC: ER 18:37
DX: R07.89 Other chest pain (principal); R20.0 Anesthesia of skin; H53.8 Other visual disturbances
CPT/HCPCS: 70450; 80053; 84443; 84484; 85025; 93005; 93010; 99284

== ENCOUNTER 2018-05-08 20:46 | Emergency (ER) | payer MEDICARE ==
[2018-05-08] MEDS ORDERED: ONDANSETRON HCL IV 4 MG/2 ML VIAL IVP ONE (21:03)
[2018-05-08] MEDS ORDERED: HYOSCYAMINE SULFATE ODT 0.125 MG TAB.SUBL SL ONE ×2 (21:04→22:10)
--- NOTE | 2018-05-08 21:07 | Emergency Department Record ---
History of Present Illness - General Stated Complaint: ABDOMINAL PAIN Time Seen by Provider: 05/08/18 20:52 Source: Patient Mode of Arrival: Ambulatory Limitations: No limitations - History of Present Illness Initial Comments: 57 yo female presents to ED for evaluation of diffuse abdominal pain symptoms that began approximately 48 hours ago. Patient reports loose stools and diffuse abdominal pain symptoms similar to ileus several months ago. Patient denies fevers, chills, or vomiting symptoms. Patient does report a surgical history of tubal ligation, denies jeannette/appy. Complaint: Abdominal pain Onset/Timin -: Hour(s) Location: Diffuse Radiation: None Severity: Moderate Quality: Cramping Consistency: Constant Improves With: Nothing Worsens With: Nothing Associated Symptoms: Denies other symptoms - Related Data Patient : No Previous Rx's Medication Instructions Recorded Fluoxetine HCl [Prozac] 10 mg PO QPM capsule 09/14/17 Fluoxetine HCl [Prozac] 20 mg PO DAILY capsule 09/14/17 Hyoscyamine Sulfate [Levsin-Sl] 0.25 mg SL Q8H PRN #15 tab.subl 05/08/18 Ondansetron [Zofran Odt] 4 mg PO Q6H PRN #15 tab.rapdis 05/08/18 Allergies Allergy/AdvReac Type Severity Reaction Status Date / Time cefuroxime axetil Allergy Intermediate HIVES Verified 02/18/18 18:54 [From Ceftin] Review of Systems Constitutional: Denies: Chills, Fever, Malaise, Night sweats Eyes: Denies: Eye discharge, Eye pain ENT: Denies: Congestion, Ear pain, Epistaxis Respiratory: Denies: Cough, Dyspnea Cardiovascular: Denies: Chest pain, Dyspnea on exertion Endocrine: Denies: Fatigue, Heat or cold intolerance Gastrointestinal: Reports: Abdominal pain, Diarrhea. Denies: Nausea, Vomiting Genitourinary: Denies: Incontinence, Retention Musculoskeletal: Denies: Arthralgia, Back pain Skin: Denies: Bruising, Change in color Neurological: Denies: Abnormal gait, Confusion, Headache, Seizure Psychiatric: Denies: Anxiety Hematological/Lymphatic: Denies: Anemia, Blood Clots Past Medical History - SOCIAL HISTORY Smoking Status: Never smoker Drug Use: None - RESPIRATORY Hx Respiratory Disorders: Yes Hx Pneumonia: Yes - CARDIOVASCULAR Hx Cardio Disorders: No - NEURO Hx Neuro Disorders: No - GI Hx GI Disorders: No - Hx Genitourinary Disorders: No - ENDOCRINE Hx Endocrine Disorders: Yes Hx Thyroid Disease: Yes (Hypo) - MUSCULOSKELETAL Hx Musculoskeletal Disorders: No - PSYCH Hx Psych Problems: Yes Hx Anxiety: Yes Hx Depression: Yes - HEMATOLOGY/ONCOLOGY Hx Hematology/Oncology Disorders: No Family Medical History Hx Cancer: Father Hx Heart Disease: Grandparents Hx Liver Disease: Father Hx Stroke: Mother, Grandparents Physical Exam - General General Appearance: Alert, Oriented x3, Cooperative, Mild distress Limitations: No limitations - Head Head exam: Atraumatic, Normocephalic, Normal inspection Head exam detail: negative: Abrasion, Contusion, Graff's sign, General tenderness, Hematoma, Laceration - Eye Eye exam: Normal appearance. negative: Conjunctival injection, Periorbital swelling, Periorbital tenderness, Scleral icterus - ENT Ear exam: negative: Auricular hematoma, Auricular trauma Nasal Exam: negative: Active bleeding, Discharge, Dried blood, Foreign body Mouth exam: negative: Drooling, Laceration, Muffled voice, Tongue elevation - Neck Neck exam: Normal inspection. negative: Meningismus, Tenderness - Respiratory Respiratory exam: Normal lung sounds bilaterally. negative: Rales, Respiratory distress, Rhonchi, Stridor - Cardiovascular Cardiovascular Exam: Regular rate, Normal rhythm, Normal heart sounds - GI/Abdominal GI/Abdominal exam: Soft, Tenderness (MIld diffuse TTP greastest epigastric region, no rebound or guarding present.). negative: Rebound, Rigid - Rectal Rectal exam: Deferred - exam: Deferred - Extremities Extremities exam: Normal inspection. negative: Calf tenderness, Pedal edema, Tenderness - Back Back exam: Denies: CVA tenderness (R), CVA tenderness (L) - Neurological Neurological exam: Alert, Normal gait, Oriented X3 - Psychiatric Psychiatric exam: Normal affect, Normal mood - Skin Skin exam: Normal color. negative: Abrasion Type of lesion: negative: abrasion Course - Reevaluation(s) Reevaluation #1: 05/08/18 21:39 Laboratory studies reviewed and are grossly unremarkable for an acute process. Reevaluation #2: 05/08/18 22:05 CT Abdomen/Pelvis with IV contrast: Moderate distention stomach, small bowel, and colon ? constipation Patient was reassessed and reports that her symptoms are improved. I discussed admission for observation vs. discharge home with the possible need to return for worsening symptoms, patient reports that she would prefer to go home at this time. Will discharge home with Levsin. Zofran, and instructions for clear liquid diet and to advance gently as tolerated. Patient verbalizes understanding of all instructions and appears stable for discharge at this time. Medical Decision Making - Lab Data Result diagrams: 05/08/18 21:00 05/08/18 21:00 Disposition Disposition: Discharge Clinical Impression: Ileus Disposition: Home, Self-Care Condition: (2) Stable Instructions: Ileus (ED) Additional Instructions: Return to ED if your symptoms worsen or if you have any concerns. Zofran and Levsin as directed. Follow-up with your family doctor in 3-5 days as directed. Prescriptions: Hyoscyamine Sulfate [Levsin-Sl] 0.25 mg SL Q8H PRN #15 tab.subl PRN Reason: Abdominal Pain Ondansetron [Zofran Odt] 4 mg PO Q6H PRN #15 tab.rapdis PRN Reason: Nausea/Vomiting Time of Disposition: 22:10 Quality - Quality Measures Quality Measures: N/A - Blood Pressure Screening Does Patient Have Any of the Following: No Blood Pressure Classification: Pre-Hypertensive BP Reading Systolic Measurement: 140 Diastolic Measurement: 89 Screening for High Blood Pressure: < Pre-Hypertensive BP, F/U Documented > [ G8950] Pre-Hypertensive Follow-up Interventions: Referral to alternative/primary care provider.
[2018-05-08 21:08] LABS: URINE APPEARANCE CLEAR; URINE BILIRUBIN NEGATIVE (NEGATIVE); URINE BLOOD SMALL (NEGATIVE); URINE COLOR YELLOW; URINE GLUCOSE (UA) NEGATIVE (NEGATIVE); URINE KETONE NEGATIVE (NEGATIVE); URINE LEUKOCYTE ESTERASE NEGATIVE (NEGATIVE); URINE NITRITE NEGATIVE (NEGATIVE); URINE PROTEIN NEGATIVE (NEGATIVE); URINE UROBILINOGEN 0.2 E.U./dL (0.20 - 1.00)
[2018-05-08 21:10] LABS: URINE BACTERIA NONE SEEN; URINE EPITHELIAL CELLS 0 - 2 (FEW); URINE WBC 0 - 2 (0-2/hpf)
[2018-05-08 21:12] LABS: BASO % 0.4 % (0-6); GRAN % 58.3 % (47-80); HEMATOCRIT 43.9 % (35.0-47.0); HEMOGLOBIN 14.6 gm/dl (11.6-16.0); LYMPH % 28.3 % (16-45); MEAN CELL VOLUME 96.7 fl (81-97); MEAN CORPUSCULAR HEMOGLOBIN 32.2 pg (27-33); MEAN CORPUSCULAR HGB CONC 33.3 g/dl (32-36); MEAN PLATELET VOLUME 8.5 fl (7.4-10.4); PLATELET COUNT 292 K/uL (130-400); RED BLOOD COUNT 4.54 M/uL (3.80-5.40); RED CELL DISTRIBUTION WIDTH 12.4 % (11.5-14.5); WHITE BLOOD COUNT W/O DIFF 4.9 K/uL (4.2-12.2)
[2018-05-08] MEDS ORDERED: 0.9 % SODIUM CHLORIDE 1000ML 1,000 ML IV SCH (21:15)
[2018-05-08 21:24] LABS: BILIRUBIN,TOTAL < 0.20 mg/dL (0.2-1.0); BLOOD UREA NITROGEN 12 mg/dL (6-20); CREATININE 0.8 mg/dL (0.5-0.9); EST GLOMERULAR FILTRATION RATE > 60 mL/min
[2018-05-08 21:25] LABS: TOTAL PROTEIN 6.7 g/dL (6.6-8.7)
[2018-05-08 21:27] LABS: GLUCOSE,RANDOM 110 mg/dL (74-109)
[2018-05-08 21:29] LABS: ALB/GLOB RATIO 1.4 (1.1-1.8); ALBUMIN 3.9 g/dL (4.0-5.0); ALT/SGPT 22 U/L (<33); AST/SGOT 18 U/L (10.0-35.0)
[2018-05-08 21:30] LABS: ALKALINE PHOSPHATASE 81 U/L (35-104); LIPASE 16 U/L (13-60)
[2018-05-08] MEDS ORDERED: ONDANSETRON 4 MG ODT TABLET SL ONE (22:10)
--- NOTE | 2018-05-09 14:38 | CT SCAN REPORT ---
EXAM: CT OF THE ABDOMEN AND PELVIS WITH INTRAVENOUS CONTRAST HISTORY: ABDOMINAL PAIN. TECHNIQUE: After the administration of 100 ml Omnipaque 300 axial images are obtained from the dome of the diaphragm to the symphysis pubis. Comparison: 09/14/17. FINDINGS: The lung bases and pleural spaces are clear. The liver is unremarkable in size and shape without soft tissue mass or biliary distention. The gallbladder is normal. The pancreas is free of focal masses or pancreatic duct distention. The spleen is unremarkable. The adrenal glands are normal. The kidneys demonstrate no hydronephrosis, suspicious calcification, or soft tissue mass. There is no evidence of mesenteric or retroperitoneal adenopathy. There is no free air or ascites. The stomach is greatly distended with irregular debris. Distention extends to the pyloric channel beyond which the duodenum is unremarkable. The colon is distended with stool which fills the colon from rectum to cecum. There is mild small bowel distention. No focal bowel wall thickening is seen. There are no obvious mesenteric inflammatory changes. The overall appearance of the bowel is essentially unchanged from the prior study. There are no pelvic masses. There are degenerative changes in the hips. IMPRESSION: MILD DILATATION OF COLON, SMALL BOWEL AND GREAT DILATATION OF THE STOMACH, STABLE FROM THE PRIOR EXAMINATION. CORRELATE CLINICALLY FOR AN ELEMENT OF ILEUS. ALSO, CORRELATION WITH HISTORY OF RECENT INGESTION OF EDIBLE AND INEDIBLE MATERIAL IS SUGGESTED. JOB NUMBER: [id number] MTDD
== END 2018-05-08 22:26 | disposition home or self-care (01) ==
LOC: ER 20:46
DX: K56.7 Ileus, unspecified (principal); R19.7 Diarrhea, unspecified; R10.84 Generalized abdominal pain
CPT/HCPCS: 99284 ×2; 96374; 96361; 83690; 85025; 80053; 81001; 74177; Q9967; J1980; J7030